=== PATIENT | female | born 1960 | race Hispanic/Latino ===

== ENCOUNTER 2020-04-19 13:35 | Emergency (ER) | payer BC | END 2020-04-19 14:06 | disposition home or self-care (01) | LOC: NAV ERS 13:35 | DX: U07.1 COVID-19 (principal); E03.9 Hypothyroidism, unspecified | CPT/HCPCS: 99283 ==

== ENCOUNTER 2023-05-19 16:22 | Outpatient (CLI) | payer BC | END 2023-05-19 16:23 | disposition home or self-care (01) | LOC: NAV RAD 16:22 | PROVIDERS: ATTEND Student in an Organized Health Care Education/Training Program | DX: M25.512 Pain in left shoulder (principal); M19.012 Primary osteoarthritis, left shoulder; M85.9 Disorder of bone density and structure, unspecified ==